=== PATIENT | female | born 1985 | race Hispanic/Latino ===

== ENCOUNTER 2020-07-15 14:46 | Outpatient (CLI) | payer OTHER ==
[2020-07-16 01:56] LABS: SARS-CoV-2 PCR by NAA Not Detected (NotDetected)
== END 2020-07-15 14:47 | disposition home or self-care (01) ==
LOC: CSHLAB 14:46
PROVIDERS: ATTEND Family Medicine
DX: Z20.822 Contact with and (suspected) exposure to COVID-19 (principal)
CPT/HCPCS: 87635; U0003; U0005

== ENCOUNTER 2020-07-20 19:08 | Inpatient (IN) | payer OTHER ==
[2020-07-20 19:52] VITALS: BMI 29.0
[2020-07-20] MEDS ORDERED: hydrALAZINE 20 MG/ML VIAL SLOW IVP PRN (20:35)
[2020-07-20] MEDS ORDERED: Lidocaine 1% (PF) 30 ML VIAL SC PRN (20:35)
[2020-07-20] MEDS ORDERED: Acetaminophen 500 MG TAB PO PRN (20:35)
[2020-07-20] MEDS ORDERED: Carboprost 250 MCG/ML AMP IM PRN (20:35)
[2020-07-20] MEDS ORDERED: Ibuprofen 800 MG TAB PO PRN (20:35)
[2020-07-20] MEDS ORDERED: Diphenoxylate HCl/Atropine Tablet PO PRN (20:35)
[2020-07-20] MEDS ORDERED: Ondansetron PF 4 MG/2 ML Vial IVP PRN (20:35)
[2020-07-20] MEDS ORDERED: Promethazine HCl 25 MG/ML VIAL IM PRN (20:35)
[2020-07-20] MEDS ORDERED: Butorphanol Tartrate 1 MG/ML VIAL SLOW IVP PRN (20:35)
[2020-07-20] MEDS ORDERED: NS / Oxytocin 40 units/1000ml 1,000 ML IV PRN (20:35)
[2020-07-20] MEDS ORDERED: Methylergonovine 0.2 MG/ML VIAL IM PRN (20:35)
[2020-07-20] MEDS ORDERED: Misoprostol 200 MCG TAB PR PRN (20:35)
[2020-07-20] MEDS ORDERED: HYDROcodone/Acetaminophen 5/325 mg Tablet PO PRN (20:35)
[2020-07-20] MEDS: CEFAZOLIN 2 GM in Premix Bag 1 BAG IVPB SCH (21:12)
[2020-07-20] MEDS: Misoprostol 100 MCG TAB PO SCH (21:13)
[2020-07-20] MEDS: Lactated Ringer's 1,000 ML IV SCH (21:13)
[2020-07-20 21:57] LABS: Mean Corpuscular HGB CONC 35.1 g/dL (32.0-36.0); Mean Corpuscular Hemoglobin 32.4 pg (27.0-33.0); Mean Corpuscular Volume 92.4 fl (81.6-98.3); Platelet Count 228 10x3/uL (150-450); RBC Distribution Width 13.2 % (11.5-14.5); White Blood Cell (WBC) Count 8.5 10x3/uL (3.5-10.5)
[2020-07-20 22:27] LABS: Syphilis Antibody Nonreactive (Nonreactive); Syphilis Antibody Index 0.06 S/CO (<1.00 Non-Reactive)
[2020-07-20 22:27] LABS: Hep B Surf Ag Non-Reactive S/CO (NonReactive)
[2020-07-20 23:07] LABS: HBSAg Index 0.12 S/CO (0-0.99)
[2020-07-21] MEDS: CEFAZOLIN 2 GM in Premix Bag 1 BAG IVPB SCH ×2 (03:09→08:40)
[2020-07-21] MEDS: Misoprostol 100 MCG TAB PO SCH ×2 (03:40→09:25)
[2020-07-21] MEDS ORDERED: Fentanyl 4 mcg/Bup 0.1% Cadd 100 ML ONE (07:02)
[2020-07-21] MEDS: Lactated Ringer's 1,000 ML IV SCH (07:02)
[2020-07-21] MEDS ORDERED: NS w/ Oxytocin 30 units 500 ML ONE ×2 (08:18→10:26)
[2020-07-21] MEDS ORDERED: Ondansetron PF 4 MG/2 ML Vial IVP PRN ×2 (08:46→12:06)
[2020-07-21] MEDS ORDERED: diphenhydrAMINE 50 MG/ML VIAL IVP PRN (08:46)
[2020-07-21] MEDS ORDERED: Acetaminophen 325 MG TAB PO PRN (08:46)
[2020-07-21] MEDS ORDERED: Lactated Ringer's 500 ML IV PRN (08:46)
[2020-07-21] MEDS ORDERED: Naloxone HCl 0.4 mg/ml Vial IVP PRN ×2 (08:46)
[2020-07-21] MEDS ORDERED: Promethazine HCl 25 MG/ML VIAL IM PRN ×2 (08:46→12:06)
[2020-07-21] MEDS ORDERED: Eucerin (Mineral Oil/Petrolatum,White) 30 gm Jar TOP PRN (08:46)
[2020-07-21] MEDS ORDERED: ePHEDrine Sulfate 50 MG/10 ML VIAL SLOW IVP PRN (08:59)
[2020-07-21] MEDS ORDERED: Communication Order-Pharmacy FS SCH (09:00)
[2020-07-21] MEDS ORDERED: Fentanyl 4 mcg/Bupivacaine 0.1% Cassette 100 ML EPIDURAL SCH (09:00)
[2020-07-21] MEDS ORDERED: hydrALAZINE 20 MG/ML VIAL SLOW IVP PRN (12:06)
[2020-07-21] MEDS ORDERED: Bisacodyl 10 MG SUPP PR PRN (12:06)
[2020-07-21] MEDS ORDERED: Milk Of Magnesia 30 ML UDCUP PO PRN (12:06)
[2020-07-21] MEDS ORDERED: diphenhydrAMINE 25 MG CAP PO PRN (12:06)
[2020-07-21] MEDS ORDERED: Lanolin Ointment 7 GM TUBE TOP PRN (12:06)
[2020-07-21] MEDS ORDERED: Benzocaine-Menthol 82.5 ML CAN TOP PRN (12:06)
[2020-07-21] MEDS ORDERED: Adacel (T-DAP) 0.5 ML SYRINGE IM ONE (12:06)
[2020-07-21] MEDS ORDERED: NS w/ Oxytocin 30 units 500 ML IVPB SCH (12:30)
[2020-07-21] MEDS: Ibuprofen 800 MG TAB PO SCH ×2 (15:05→21:03)
[2020-07-21] MEDS: Ferrous Sulfate 325 MG TAB PO SCH (16:28)
[2020-07-21] MEDS ORDERED: Bupivacaine PF 0.5% 30 ML VIAL ONE (19:53)
[2020-07-21] MEDS ORDERED: Bupivacaine 0.25% HCL 30 ML VIAL ONE (19:53)
[2020-07-21] MEDS: Acetaminophen 500 MG TAB PO PRN (20:51)
[2020-07-21] MEDS: Docusate Calcium (SURFAK) 240 MG CAP PO SCH (20:51)
[2020-07-22] MEDS: Ibuprofen 800 MG TAB PO SCH ×2 (05:44→13:27)
[2020-07-22] MEDS: Acetaminophen 500 MG TAB PO PRN ×2 (07:50→13:28)
[2020-07-22] MEDS: Docusate Calcium (SURFAK) 240 MG CAP PO SCH (07:50)
[2020-07-22 07:59] VITALS: BP 103/61; TEMP 98.1
[2020-07-22] MEDS ORDERED: Prenatal Vitamin 1 TAB PO SCH (09:00)
[2020-07-22] MEDS: Ferrous Sulfate 325 MG TAB PO SCH (10:27)
== END 2020-07-22 16:00 | disposition home or self-care (01) | DRG 807 ==
LOC: CSHLD 19:08 → EDSTATUS 19:15 → CSHLD 19:45 → CSHPED 07-21 14:30
PROVIDERS: ADMIT Family Medicine; ATTEND Family Medicine
PROC: 10E0XZZ Delivery of Products of Conception, External Approach (ICD-10-PCS; principal; 2020-07-21)
PROC: 3E033VJ Introduction of Other Hormone into Peripheral Vein, Percutaneous Approach (ICD-10-PCS; 2020-07-21)
PROC: 10907ZC Drainage of Amniotic Fluid, Therapeutic from Products of Conception, Via Natural or Artificial Opening (ICD-10-PCS; 2020-07-21)
DX: O99.824 Streptococcus B carrier state complicating childbirth (principal); O70.9 Perineal laceration during delivery, unspecified; Z37.0 Single live birth; Z3A.40 40 weeks gestation of pregnancy
CPT/HCPCS: 51702; 85027; 86780; 86850; 86900; 86901; 87340; J0690; J2590; J7030; S0020

== ENCOUNTER 2022-11-12 20:59 | Emergency (ER) | payer MEDICAID, OTHER, SELFPAY ==
[2022-11-12 22:21] LABS: #Monocytes 0.9 10x3/uL (0.0-1.1); #Neutrophils 10.1 10x3/uL (1.5-8.4); %Basophils 0.3 % (0.0-2.0); %Eosinophils 0.1 % (0.0-6.0); %Lymphocytes 12.8 % (18.0-47.0); %Monocytes 7.1 % (0.0-10.0); %Neutrophils 79.3 % (40.0-75.0); Hematocrit 36.7 % (34.9-44.5); Mean Corpuscular HGB CONC 35.4 g/dL (32.0-36.0); Mean Corpuscular Hemoglobin 33.2 pg (27.0-33.0); Mean Corpuscular Volume 93.6 fl (81.6-98.3); Mean Platelet Volume 9.2 fl (7.4-10.4); Platelet Count 242 10x3/uL (150-450); RBC Distribution Width 12.8 % (11.5-14.5); Red Blood Cell (RBC) Count 3.92 10x6/uL (3.90-5.03); White Blood Cell (WBC) Count 12.7 10x3/uL (3.5-10.5)
[2022-11-12 22:36] LABS: ALT (SGPT) 24 U/L (8-55); AST (SGOT) 37 U/L (5-34); Albumin 4.3 g/dL (3.5-5.0); Alkaline Phosphatase 89 U/L (40-110); Anion Gap 17 mmol/L (10-20); BUN (Urea Nitrogen) 14 mg/dL (7.0-18.7); Bilirubin, Total 1.5 mg/dL (0.2-1.2); Calc. Creatinine Clearance 0 mL/min (70-130); Calcium 9.1 mg/dL (7.8-10.44); Carbon Dioxide 21 mmol/L (22-29); Chloride 100 mmol/L (98-107); Estimated GFR 81; Globulin 3.2 g/dL (2.4-3.5); Glucose 131 mg/dL (70-105); Lipase 15 U/L (8-78); Potassium 3.9 mmol/L (3.5-5.1); Protein, Total 7.5 g/dL (6.0-8.3); Sodium 134 mmol/L (136-145)
[2022-11-12] MEDS ORDERED: Ketorolac Tromethamine 30 MG/ML VIAL ONE (22:41)
[2022-11-12 22:47] LABS: Bilirubin 1+ (Negative); Blood, Urine 150 (Negative); Clarity Cloudy (Clear); Glucose, Urine (Dipstick) Normal (Negative); Ketone, Urine 50 mg/dL (Negative); Leukocyte 500 (Negative); Nitrite Positive (Negative); Protein, Urine (Dipstick) 100 mg/dl (Neg-Trace)
[2022-11-12 22:52] LABS: Pregnancy Test - Urine (BHCG) POSITIVE (Negative); Pregu Control Background? CLEAR/WHITE (CLR/WHITE); Pregu Control Bar Appear? YES (CONTROL BAR)
[2022-11-12 23:16] LABS: Bacteria/HPF 4+ HPF (None Seen); CAUTI Indications for Culture Pelvic or flank pain; Squamous Epithelial 0-3 HPF (0-3); WBC/HPF Greater than 50 HPF (0-3)
[2022-11-12 23:17] LABS: Urine Culture Reflex Yes Yes
[2022-11-12 23:29] LABS: SARS-CoV-2 NAA Rapid Test Not Detected (NotDetected)
[2022-11-13] MEDS ORDERED: Amoxicillin/Potassium Clav 875 MG TAB ONE (00:34)
== END 2022-11-13 01:19 | disposition home or self-care (01) ==
LOC: CSHERS 20:59
DX: O23.40 Unspecified infection of urinary tract in pregnancy, unspecified trimester (principal); Z20.822 Contact with and (suspected) exposure to COVID-19; Z3A.00 Weeks of gestation of pregnancy not specified
CPT/HCPCS: 80053; 81001; 81025; 83690; 84702; 85025; 87077; 87086; 87186; 96374; J1885

== ENCOUNTER 2022-11-14 17:51 | Emergency (ER) | payer SELFPAY | END 2022-11-15 02:58 | disposition home or self-care (01) | LOC: CSHERS 17:51 | DX: N93.9 Abnormal uterine and vaginal bleeding, unspecified (principal); I10 Essential (primary) hypertension; F17.290 Nicotine dependence, other tobacco product, uncomplicated | CPT/HCPCS: 36415; 84702; 99284 ==

== ENCOUNTER 2023-01-16 17:11 | Emergency (ER) | payer OTHER ==
[2023-01-16 17:55] LABS: #Monocytes 0.4 10x3/uL (0.0-1.1); #Neutrophils 3.7 10x3/uL (1.5-8.4); %Basophils 0.5 % (0.0-2.0); %Eosinophils 0.5 % (0.0-6.0); %Lymphocytes 35.8 % (18.0-47.0); %Monocytes 6.7 % (0.0-10.0); %Neutrophils 56.3 % (40.0-75.0); Hematocrit 36.3 % (34.9-44.5); Hemoglobin 12.6 g/dL (12.0-15.5); Mean Corpuscular HGB CONC 34.7 g/dL (32.0-36.0); Mean Corpuscular Hemoglobin 32.1 pg (27.0-33.0); Mean Corpuscular Volume 92.4 fl (81.6-98.3); Mean Platelet Volume 9.1 fl (7.4-10.4); Platelet Count 256 10x3/uL (150-450); RBC Distribution Width 12.3 % (11.5-14.5); Red Blood Cell (RBC) Count 3.93 10x6/uL (3.90-5.03); White Blood Cell (WBC) Count 6.5 10x3/uL (3.5-10.5)
[2023-01-16 18:02] LABS: Anion Gap 13 mmol/L (10-20); BUN (Urea Nitrogen) 10 mg/dL (7.0-18.7); Calc. Creatinine Clearance 0 mL/min (70-130); Calcium 8.9 mg/dL (7.8-10.44); Carbon Dioxide 24 mmol/L (22-29); Chloride 105 mmol/L (98-107); Estimated GFR 86; Glucose 83 mg/dL (70-105); Potassium 3.8 mmol/L (3.5-5.1); Sodium 138 mmol/L (136-145)
[2023-01-16 18:34] LABS: Bilirubin Neg (Negative); Blood, Urine Negative (Negative); Clarity Clear (Clear); Glucose, Urine (Dipstick) Normal (Negative); Ketone, Urine Negative (Negative); Leukocyte Negative (Negative); Nitrite Negative (Negative); Protein, Urine (Dipstick) Negative (Neg-Trace); Urobilinogen Normal mg/dL (Less than 2)
[2023-01-16 18:43] LABS: Bacteria/HPF Rare-Few HPF (None Seen); CAUTI Indications for Culture Dysuria,urgency,freq; RBC/HPF 0-3 HPF (0-3); Squamous Epithelial 0-3 HPF (0-3)
[2023-01-16 18:44] LABS: Urine Culture Reflex No No
[2023-01-16] MEDS ORDERED: Acetaminophen 500 MG TAB ONE (19:59)
== END 2023-01-16 20:07 | disposition home or self-care (01) ==
LOC: CSHERS 17:11
DX: O20.9 Hemorrhage in early pregnancy, unspecified (principal); O10.911 Unspecified pre-existing hypertension complicating pregnancy, first trimester; O99.331 Smoking (tobacco) complicating pregnancy, first trimester; F17.290 Nicotine dependence, other tobacco product, uncomplicated; Z3A.01 Less than 8 weeks gestation of pregnancy
CPT/HCPCS: 36415; 76856; 80048; 81001; 84702; 85025; 86900; 86901; 87086

== ENCOUNTER 2023-02-06 19:44 | Emergency (ER) | payer OTHER ==
[2023-02-06] MEDS ORDERED: Acetaminophen 500 MG TAB ONE (20:37)
[2023-02-06 21:00] LABS: Bilirubin Neg (Negative); Blood, Urine Negative (Negative); Clarity Clear (Clear); Glucose, Urine (Dipstick) Normal (Negative); Ketone, Urine Negative (Negative); Leukocyte 500 (Negative); Nitrite Negative (Negative); Protein, Urine (Dipstick) 15 mg/dl (Neg-Trace); Specific Gravity, Urine 1.005 (1.005-1.030); Urobilinogen Normal mg/dL (Less than 2); pH, Urine 6.5 (5.0-9.0)
[2023-02-06 21:17] LABS: Bacteria/HPF None Seen HPF (None Seen); CAUTI Indications for Culture Pelvic or flank pain; RBC/HPF None Seen HPF (0-3); Squamous Epithelial None Seen HPF (0-3); WBC/HPF None Seen HPF (0-3)
[2023-02-06 21:18] LABS: Urine Culture Reflex No No
[2023-02-06 21:35] LABS: #Basophils 0.1 10x3/uL (0.0-0.2); #Monocytes 0.4 10x3/uL (0.0-1.1); #Neutrophils 5.7 10x3/uL (1.5-8.4); %Basophils 0.6 % (0.0-2.0); %Eosinophils 0.2 % (0.0-6.0); %Monocytes 4.4 % (0.0-10.0); %Neutrophils 62.6 % (40.0-75.0); Anion Gap 16 mmol/L (10-20); BUN (Urea Nitrogen) 12 mg/dL (7.0-18.7); Calc. Creatinine Clearance 0 mL/min (70-130); Calcium 9.7 mg/dL (7.8-10.44); Carbon Dioxide 20 mmol/L (22-29); Chloride 104 mmol/L (98-107); Estimated GFR 106; Glucose 96 mg/dL (70-105); Hematocrit 38.4 % (34.9-44.5); Hemoglobin 13.4 g/dL (12.0-15.5); Mean Corpuscular HGB CONC 34.9 g/dL (32.0-36.0); Mean Corpuscular Hemoglobin 31.4 pg (27.0-33.0); Mean Corpuscular Volume 89.9 fl (81.6-98.3); Mean Platelet Volume 9.6 fl (7.4-10.4); Platelet Count 268 10x3/uL (150-450); Potassium 3.7 mmol/L (3.5-5.1); RBC Distribution Width 12.3 % (11.5-14.5); Red Blood Cell (RBC) Count 4.27 10x6/uL (3.90-5.03); Sodium 136 mmol/L (136-145); White Blood Cell (WBC) Count 9.1 10x3/uL (3.5-10.5)
[2023-02-06] MEDS ORDERED: cefTRIAXone (ROCEPHIN) 1 GM VIAL ONE (21:46)
== END 2023-02-06 22:15 | disposition home or self-care (01) ==
LOC: CSHERS 19:44
DX: O23.41 Unspecified infection of urinary tract in pregnancy, first trimester (principal); O99.891 Other specified diseases and conditions complicating pregnancy; O16.4 Unspecified maternal hypertension, complicating childbirth; Z3A.01 Less than 8 weeks gestation of pregnancy
CPT/HCPCS: 36415; 80048; 81001; 84702; 85025; 96372; 99283; J0696

== ENCOUNTER 2023-08-30 15:06 | Emergency (ER) | payer OTHER ==
[2023-08-30 16:14] LABS: #Basophils 0.03 10x3/uL (0.0-0.2); #Eosinphils 0.03 10x3/uL (0.0-0.5); #Neutrophils 3.96 10x3/uL (1.5-8.4); %Basophils 0.5 % (0.0-2.0); %Eosinophils 0.5 % (0.0-6.0); %Lymphocytes 32.2 % (18.0-47.0); %Monocytes 6.1 % (0.0-10.0); %Neutrophils 60.5 % (40.0-75.0); Hematocrit 32.6 % (34.9-44.5); Mean Corpuscular HGB CONC 36.8 g/dL (32.0-36.0); Mean Corpuscular Hemoglobin 33.5 pg (27.0-33.0); Mean Corpuscular Volume 91.1 fl (81.6-98.3); Mean Platelet Volume 9.6 fl (7.4-10.4); Platelet Count 242 10x3/uL (150-450); RBC Distribution Width 11.9 % (11.5-14.5); Red Blood Cell (RBC) Count 3.58 10x6/uL (3.90-5.03); White Blood Cell (WBC) Count 6.5 10x3/uL (3.5-10.5)
[2023-08-30 16:28] LABS: ALT (SGPT) 12 U/L (8-55); AST (SGOT) 13 U/L (5-34); Albumin 3.7 g/dL (3.5-5.0); Alkaline Phosphatase 47 U/L (40-110); Anion Gap 14 mmol/L (10-20); BUN (Urea Nitrogen) 9 mg/dL (7.0-18.7); Bilirubin, Total 0.5 mg/dL (0.2-1.2); Calc. Creatinine Clearance 0 mL/min (70-130); Calcium 9.3 mg/dL (7.8-10.44); Carbon Dioxide 21 mmol/L (22-29); Chloride 103 mmol/L (98-107); Estimated GFR 114; Globulin 3.5 g/dL (2.4-3.5); Glucose 91 mg/dL (70-105); Potassium 4.1 mmol/L (3.5-5.1); Protein, Total 7.2 g/dL (6.0-8.3); Sodium 134 mmol/L (136-145)
[2023-08-30 18:58] LABS: Bilirubin Neg (Negative); Blood, Urine Negative (Negative); Clarity Clear (Clear); Glucose, Urine (Dipstick) Normal (Negative); Ketone, Urine Negative (Negative); Leukocyte Negative (Negative); Nitrite Negative (Negative); Protein, Urine (Dipstick) Negative (Neg-Trace); Urobilinogen Normal mg/dL (Less than 2); pH, Urine 6.5 (5.0-9.0)
[2023-08-30 19:05] LABS: Bacteria/HPF Rare-Few HPF (None Seen); CAUTI Indications for Culture Pregnancy; RBC/HPF None Seen HPF (0-3); Squamous Epithelial 0-3 HPF (0-3); WBC/HPF None Seen HPF (0-3)
[2023-08-30 19:06] LABS: Urine Culture Reflex Yes Yes
== END 2023-08-30 18:30 | disposition home or self-care (01) ==
LOC: CSHERS 15:06
DX: O20.0 Threatened abortion (principal); I10 Essential (primary) hypertension; Z87.891 Personal history of nicotine dependence; Z3A.13 13 weeks gestation of pregnancy
CPT/HCPCS: 36415; 76815; 80053; 81001; 84702; 85025; 86900; 86901; 87086

== ENCOUNTER 2024-01-17 18:43 | Day surgery (SDC) | payer MEDICAID ==
[2024-01-17 19:24] VITALS: BMI 26.6
[2024-01-17] MEDS ORDERED: hydrALAZINE 20 MG/ML VIAL SLOW IVP PRN (20:03)
[2024-01-17 20:20] LABS: Bilirubin Neg (Negative); Blood, Urine 10 (Negative); Clarity Clear (Clear); Glucose, Urine (Dipstick) Normal (Negative); Ketone, Urine Negative (Negative); Leukocyte 25 (Negative); Nitrite Negative (Negative); Protein, Urine (Dipstick) 15 mg/dl (Neg-Trace); Urobilinogen Normal mg/dL (Less than 2)
[2024-01-17 20:30] LABS: Bacteria/HPF Rare-Few HPF (None Seen); CAUTI Indications for Culture Pregnancy; Mucous/LPF Rare LPF (<2+); RBC/HPF 0-3 HPF (0-3); Squamous Epithelial 0-3 HPF (0-3)
[2024-01-17 20:31] LABS: WBC/HPF 0-3 HPF (0-3)
[2024-01-17 20:32] LABS: Urine Culture Reflex No No; Urine Culture Reflex Yes Yes
== END 2024-01-17 22:26 | disposition home or self-care (01) ==
LOC: CSHLD/OP 18:43
PROVIDERS: ATTEND Family Medicine
DX: O46.93 Antepartum hemorrhage, unspecified, third trimester (principal); O09.42 Supervision of pregnancy with grand multiparity, second trimester; O09.523 Supervision of elderly multigravida, third trimester; O99.343 Other mental disorders complicating pregnancy, third trimester; F41.9 Anxiety disorder, unspecified; F25.0 Schizoaffective disorder, bipolar type; O99.891 Other specified diseases and conditions complicating pregnancy; M41.9 Scoliosis, unspecified; M19.90 Unspecified osteoarthritis, unspecified site; O23.00 Infections of kidney in pregnancy, unspecified trimester; N12 Tubulo-interstitial nephritis, not specified as acute or chronic; O99.333 Smoking (tobacco) complicating pregnancy, third trimester; Z87.891 Personal history of nicotine dependence; F12.90 Cannabis use, unspecified, uncomplicated; O23.593 Infection of other part of genital tract in pregnancy, third trimester; A59.01 Trichomonal vulvovaginitis; B96.89 Other specified bacterial agents as the cause of diseases classified elsewhere; Z88.0 Allergy status to penicillin; Z3A.33 33 weeks gestation of pregnancy
CPT/HCPCS: 76815; 76817; 81001; 87086; 87480; 87510; 87660; 99284

== ENCOUNTER 2024-03-02 19:00 | Inpatient (IN) | payer MEDICAID ==
[2024-03-02] MEDS: Lactated Ringer's 1,000 ML IV SCH (22:37)
[2024-03-02] MEDS ORDERED: Ibuprofen 800 MG TAB PO PRN (23:03)
[2024-03-02] MEDS ORDERED: Ondansetron PF 4 MG/2 ML Vial IVP PRN (23:03)
[2024-03-02] MEDS ORDERED: Misoprostol 200 MCG TAB PR PRN (23:03)
[2024-03-02] MEDS ORDERED: Oxytocin 30 units/NS 500 ML 500 ML IV SCH ×2 (23:03)
[2024-03-02] MEDS ORDERED: Tranexamic Acid 1,000 MG/10 ML VIAL IVP PRN (23:03)
[2024-03-02] MEDS ORDERED: Promethazine HCl 25 MG/ML VIAL IM PRN (23:03)
[2024-03-02] MEDS ORDERED: hydrALAZINE 20 MG/ML VIAL SLOW IVP PRN (23:03)
[2024-03-02] MEDS ORDERED: Lidocaine 1% (PF) 30 ML VIAL SC PRN (23:03)
[2024-03-02] MEDS ORDERED: Methylergonovine 0.2 MG/ML VIAL IM PRN (23:03)
[2024-03-02] MEDS ORDERED: HYDROcodone/Acetaminophen 5/325 mg Tablet PO PRN (23:03)
[2024-03-02] MEDS ORDERED: Carboprost 250 MCG/ML AMP IM PRN (23:03)
[2024-03-02] MEDS ORDERED: Diphenoxylate HCl/Atropine Tablet PO PRN (23:03)
[2024-03-02 23:28] VITALS: BMI 28.0
[2024-03-02 23:28] LABS: Hematocrit 32.2 % (34.9-44.5); Hemoglobin 11.6 g/dL (12.0-15.5); Mean Corpuscular Hemoglobin 32.6 pg (27.0-33.0); Mean Corpuscular Volume 90.4 fL (81.6-98.3); Mean Platelet Volume 9.2 fL (7.4-10.4); Platelet Count 290 10x3/uL (150-450); Red Blood Cell (RBC) Count 3.56 10x6/uL (3.90-5.03); White Blood Cell (WBC) Count 7.8 10x3/uL (3.5-10.5)
[2024-03-02 23:59] LABS: Syphilis Antibody Nonreactive (Nonreactive); Syphilis Antibody Index 0.04 S/CO (<1.00 Non-Reactive)
[2024-03-03 00:01] LABS: HBsAg Index 0.18 S/CO (0-0.99); Hep B Surf Ag - L&D Non-Reactive S/CO (NonReactive)
[2024-03-03] MEDS: Acetaminophen 500 MG TAB PO PRN (00:09)
[2024-03-03] MEDS: Misoprostol 100 MCG TAB PO SCH (00:09)
[2024-03-03] MEDS: fentaNYL 50 mcg/mL 1 mL Vial SLOW IVP PRN (03:28)
[2024-03-03] MEDS: Penicillin G Potassium 5 MILL.UNITS in Sodium Chloride 0.9% 100 ML IVPB SCH (04:10)
[2024-03-03] MEDS: fentaNYL/Ropivacaine Epidural 100 ML ONE (07:27)
[2024-03-03] MEDS: Penicillin G 2.5 MILL.units 2.5 MILL.UNITS in Premix 1 BAG IVPB SCH (07:47)
[2024-03-03] MEDS: Oxytocin 30 units/NS 500 ML 500 ML IV SCH (08:31)
[2024-03-03] MEDS ORDERED: Promethazine HCl 25 MG/ML VIAL IM PRN ×2 (09:26→17:06)
[2024-03-03] MEDS ORDERED: ePHEDrine Sulfate 50 MG/10 ML VIAL SLOW IVP PRN (09:26)
[2024-03-03] MEDS ORDERED: diphenhydrAMINE 50 MG/ML VIAL IVP PRN (09:26)
[2024-03-03] MEDS ORDERED: Acetaminophen 325 MG TAB PO PRN (09:26)
[2024-03-03] MEDS ORDERED: Moisturizing Cream (Eucerin) 113 GM JAR TOP PRN (09:26)
[2024-03-03] MEDS ORDERED: Lactated Ringer's 500 ML IV PRN (09:26)
[2024-03-03] MEDS ORDERED: Naloxone HCl 0.4 mg/ml Vial IVP PRN ×2 (09:26)
[2024-03-03] MEDS ORDERED: fentaNYL 2 mcg/Ropivacaine 0.2% Epidural 100 ML CADD EPIDURAL SCH (09:30)
[2024-03-03] MEDS ORDERED: Communication Order-Pharmacy FS SCH (09:30)
[2024-03-03] MEDS ORDERED: Dexmedetomidine 200 MCG/2 ML VIAL ONE (13:51)
[2024-03-03] MEDS ORDERED: Sodium Chloride 0.9% 10 ML ONE (13:51)
[2024-03-03] MEDS: Ondansetron PF 4 MG/2 ML Vial IVP PRN (14:05)
[2024-03-03] MEDS ORDERED: Erythromycin Base 0.5% Oint 1 GM TUBE ONE (15:37)
[2024-03-03] MEDS ORDERED: Phytonadione Neonatal 1 MG/0.5 ML AMP ONE (15:37)
[2024-03-03] MEDS ORDERED: Ferrous Sulfate 325 MG TAB PO SCH (17:00)
[2024-03-03] MEDS ORDERED: Milk Of Magnesia 30 ML UDCUP PO PRN (17:06)
[2024-03-03] MEDS ORDERED: Boostrix 0.5 ML (Tdap) VIAL (>/=7 yrs of age) IM ONE (17:06)
[2024-03-03] MEDS ORDERED: diphenhydrAMINE 25 MG CAP PO PRN (17:06)
[2024-03-03] MEDS ORDERED: hydrALAZINE 20 MG/ML VIAL SLOW IVP PRN (17:06)
[2024-03-03] MEDS ORDERED: Ondansetron PF 4 MG/2 ML Vial IVP PRN (17:06)
[2024-03-03] MEDS ORDERED: Lanolin Ointment 7 GM TUBE TOP PRN (17:06)
[2024-03-03] MEDS ORDERED: Oxytocin 30 units/NS 500 ML 500 ML IV SCH (17:06)
[2024-03-03] MEDS ORDERED: Bisacodyl 10 MG SUPP PR PRN (17:06)
[2024-03-03] MEDS: Ibuprofen 800 MG TAB PO SCH (18:21)
[2024-03-03] MEDS: HYDROcodone/Acetaminophen 5/325 mg Tablet PO PRN (19:19)
[2024-03-03] MEDS ORDERED: Docusate 100 MG CAP PO SCH (21:00)
[2024-03-03] MEDS ORDERED: Ibuprofen 800 MG TAB PO SCH (22:00)
[2024-03-04] MEDS ORDERED: Prenatal Vitamin 1 TAB PO SCH (09:00)
[2024-03-04] MEDS ORDERED: Measles/Mumps/Rubella 10 MCG/0.5 ML VIAL ONE ×2 (18:01→18:12)
== END 2024-03-04 18:35 | disposition home or self-care (01) | DRG 807 ==
LOC: CSHLD 20:58 → CSHPED 03-03 20:53
PROVIDERS: ADMIT Family Medicine; ATTEND Family Medicine
PROC: 10E0XZZ Delivery of Products of Conception, External Approach (ICD-10-PCS; principal; 2024-03-03)
DX: O99.824 Streptococcus B carrier state complicating childbirth (principal); Z37.0 Single live birth; Z3A.40 40 weeks gestation of pregnancy; O99.344 Other mental disorders complicating childbirth; F32.A Depression, unspecified; F41.9 Anxiety disorder, unspecified
CPT/HCPCS: 51702; 85027; 86780; 86850; 86900; 86901; 87340; J2405; J2540; J2590; J3010; J7120

== ENCOUNTER 2025-02-19 14:59 | Emergency (ER) | payer MEDICAID ==
[2025-02-19] MEDS ORDERED: Acetaminophen 500 MG TAB ONE (15:40)
== END 2025-02-19 17:59 ==
LOC: CSHERS 14:59
DX: O99.891 Other specified diseases and conditions complicating pregnancy (principal); R50.9 Fever, unspecified; R51.9 Headache, unspecified; R10.9 Unspecified abdominal pain; O09.91 Supervision of high risk pregnancy, unspecified, first trimester; Z3A.01 Less than 8 weeks gestation of pregnancy
CPT/HCPCS: 99284